=== PATIENT | male | born 1990 | race Caucasian/White ===

== ENCOUNTER 2018-08-09 14:18 | Emergency (ER) | payer OTHER ==
[~2018-08-09] VITALS: Ht 165.1 cm; Wt 95.7 kg
[2018-08-09 15:40] VITALS: BP 152/70
== END 2018-08-09 15:43 | disposition home or self-care (01) ==
LOC: FSED 14:18
DX: K62.5 Hemorrhage of anus and rectum (principal); K92.2 Gastrointestinal hemorrhage, unspecified
CPT/HCPCS: 99283